=== PATIENT | female | born 1945 | race Caucasian/White ===

== ENCOUNTER → 2018-11-21 | Outpatient (CLI) | payer MEDICARE ==
[~2018-11-21] MED LIST: ASPI1TAB19 OR; CARV6.2551 OR; DIGO0.1262 OR; DULO60CA OR; FURO20TA3 OR; GABA400C11 OR; GLYB2.5T8 OR; LISI-646 OR; METF-370 OR; PIOG30TA8 OR; PLAVIX PO; POTA-167 OR; SIMV-13 OR
== END | disposition home or self-care (01) ==
LOC: Rad HDHVI 08:00
PROVIDERS: ATTEND Internal Medicine Cardiovascular Disease
DX: I08.0 Rheumatic disorders of both mitral and aortic valves (principal)
CPT/HCPCS: 93306

== ENCOUNTER → 2018-12-26 | Outpatient (CLI) | payer MEDICARE ==
[~2018-12-26] VITALS: Ht 162.6 cm; Wt 103.9 kg
[~2018-12-26] MED LIST changes: +ADENOSINE 87 MG in GIVE UN-DILUTED 0 ML IV ONE; +ADENOSINE 90 MG/30 ML INJ IV ONE
[2018-12-26 12:13] LABS: Urine Blood Negative /uL (Negative); Urine Specific Gravity 1.034 (1.001-1.035)
[2018-12-26 12:25] LABS: Free T4 (Free Thyroxine) 1.32 ng/dL (0.89-1.76)
[2018-12-26 12:34] LABS: Basophils # (auto) 0.1 uL; Basophils % (auto) 0.6 % (0.0-2.0); Eosinophils # (auto) 0.2 uL; Eosinophils % (auto) 2.1 % (0.0-7.0); Hemoglobin 12.6 g/dL (12.2-16.2); Lymphocytes # (auto) 1.3 uL; Lymphocytes % (auto) 13.6 % (10.0-50.0); Mean Corpuscular Hgb Conc. 32.4 g/dL (32.0-36.0); Mean Corpuscular Volume 89.5 fL (80.0-100.0); Monocytes # (auto) 0.7 uL; Monocytes % (auto) 7.8 % (0.0-12.0); Neutrophils # (auto) 7.1 uL; Neutrophils % (auto) 75.9 % (37.0-80.0); Nucleated Red Blood Cells % 0.1 %; Platelet Count (auto) 290 10^3/uL (140-450); Red Blood Cells 4.36 10^6/uL (4.0-5.20); Red Cell Distribution Width 14.5 % (11.8-14.3); White Blood Cell 9.4 10^3/uL (4.4-10.8)
[2018-12-26 12:36] LABS: Albumin 3.3 g/dL (3.4-5.0); BUN/Creatinine Ratio 40.3; Bilirubin, Total 0.6 mg/dL (0.2-1.0); Total Protein 7.1 g/dL (6.4-8.2)
== END | disposition home or self-care (01) ==
LOC: Rad HDHVI 07:56
PROVIDERS: ATTEND Internal Medicine Cardiovascular Disease
DX: I11.0 Hypertensive heart disease with heart failure (principal); I50.23 Acute on chronic systolic (congestive) heart failure; E03.9 Hypothyroidism, unspecified; E11.9 Type 2 diabetes mellitus without complications; E55.9 Vitamin D deficiency, unspecified; D51.9 Vitamin B12 deficiency anemia, unspecified; N39.0 Urinary tract infection, site not specified
CPT/HCPCS: 36415; 78452; 80053; 80061; 81003; 82306; 82607; 83036; 84439; 84443; 85025; 87086; 93005; 96374; 96375; A9500; J0153

== ENCOUNTER 2019-01-08 22:31 | Inpatient (IN) | payer MEDICARE ==
[~2019-01-08] VITALS: Ht 162.6 cm; Wt 103.9 kg
[~2019-01-08 22:31] MED LIST changes: -ADENOSINE 87 MG in GIVE UN-DILUTED 0 ML IV ONE; -ADENOSINE 90 MG/30 ML INJ IV ONE
[2019-01-09] LABS: Basophils # (auto) 0 uL; Basophils % (auto) 0.3 % (0.0-2.0); Eosinophils # (auto) 0.1 uL; Hemoglobin 12.7 g/dL (12.2-16.2); Lymphocytes # (auto) 0.7 uL; Lymphocytes % (auto) 6.2 % (10.0-50.0); Mean Corpuscular Hemoglobin 29.5 pg (28.0-32.0); Mean Corpuscular Hgb Conc. 33.3 g/dL (32.0-36.0); Mean Corpuscular Volume 88.4 fL (80.0-100.0); Monocytes # (auto) 0.9 uL; Monocytes % (auto) 7.4 % (0.0-12.0); Neutrophils # (auto) 10.1 uL; Neutrophils % (auto) 85.1 % (37.0-80.0); Platelet Count (auto) 288 10^3/uL (140-450); Red Blood Cells 4.29 10^6/uL (4.0-5.20); Red Cell Distribution Width 14.9 % (11.8-14.3); White Blood Cell 11.9 10^3/uL (4.4-10.8)
[2019-01-09 00:18] LABS: INR 1.74 (0.9-1.15); Partial Thromboplastin Time 38.8 sec (23.78-33.04); Potassium 4.4 mmol/L (3.5-5.1)
[2019-01-09 00:22] LABS: Albumin 3.1 g/dL (3.4-5.0); BUN/Creatinine Ratio 36.5; Calcium 8.5 mg/dL (8.5-10.1); Magnesium 1.9 mg/dL (1.6-2.6)
[2019-01-09 00:55] LABS: Bilirubin, Total 0.5 mg/dL (0.2-1.0); Total Protein 7.1 g/dL (6.4-8.2)
[2019-01-09] MEDS ORDERED: ASPirin 325 MG TAB PO ONE (02:00)
[2019-01-09] MEDS ORDERED: NITROGLYCERIN 0.2MG/HR TOPICAL PATCH TD ONE (02:00)
[2019-01-09] MEDS ORDERED: ONDANSETRON HCL 4 MG/2 ML VIAL IV PRN (05:45)
[2019-01-09] MEDS ORDERED: DEXTROSE (50%) 50ML SYRG IV PRN (05:45)
[2019-01-09] MEDS ORDERED: MORPHINE SULFATE 4 MG/ML SYR/VIAL IV PRN (05:45)
[2019-01-09] MEDS: GABAPENTIN 300 MG CAP PO SCH ×3 (06:00→22:12)
[2019-01-09] MEDS: LEVOTHYROXINE SODIUM 50 MCG TAB PO SCH (06:00)
[2019-01-09] MEDS ORDERED: IPRATROPIUM BROM 0.5 MG/2.5ML INH SOL NEB ONE (06:30)
[2019-01-09] MEDS ORDERED: ALBUTEROL SULF 2.5 MG/0.5ML(0.5%) NEB SOLN NEB ONE (06:30)
[2019-01-09] MEDS ORDERED: FUROSEMIDE 20 MG/2 ML VIAL IV ONE (06:30)
[2019-01-09] MEDS: ACCU-CHEK COMFORT CURVE STRIP VI SCH ×4 (06:58→22:12)
[2019-01-09] MEDS: InsuLIN REG 1unit/0.01ml Soln (100units/ml) SC SCH ×3 (06:58→17:00)
[2019-01-09 07:52] LABS: Urine Bacteria FEW /hpf (None Seen); Urine Blood Negative /uL (Negative); Urine Mucus FEW (None Seen); Urine Specific Gravity 1.029 (1.001-1.035); Urine WBC 2 /hpf (0 - 5)
[2019-01-09 07:59] LABS: Basophils # (auto) 0 uL; Basophils % (auto) 0.4 % (0.0-2.0); Eosinophils # (auto) 0.2 uL; Eosinophils % (auto) 1.9 % (0.0-7.0); Hematocrit 35.3 % (36.0-46.0); Hemoglobin 11.4 g/dL (12.2-16.2); Lymphocytes # (auto) 1.1 uL; Lymphocytes % (auto) 13.1 % (10.0-50.0); Mean Corpuscular Hemoglobin 28.7 pg (28.0-32.0); Mean Corpuscular Hgb Conc. 32.4 g/dL (32.0-36.0); Mean Corpuscular Volume 88.5 fL (80.0-100.0); Monocytes # (auto) 0.9 uL; Monocytes % (auto) 10.6 % (0.0-12.0); Neutrophils # (auto) 6.4 uL; Platelet Count (auto) 266 10^3/uL (140-450); Red Blood Cells 3.99 10^6/uL (4.0-5.20); Red Cell Distribution Width 14.8 % (11.8-14.3); White Blood Cell 8.7 10^3/uL (4.4-10.8)
[2019-01-09 08:14] LABS: BUN/Creatinine Ratio 41.4; Calcium 8.4 mg/dL (8.5-10.1); Potassium 3.6 mmol/L (3.5-5.1)
[2019-01-09] MEDS: cefTRIAXone 1GM/50ML D5W 50 ML IV SCH (08:40)
[2019-01-09] MEDS: PANTOPRAZOLE 40 MG TAB PO SCH (10:45)
[2019-01-09] MEDS: CARVEDILOL 3.125 MG TAB PO SCH ×2 (10:45→22:38)
[2019-01-09] MEDS: CLOPIDOGREL BISULFATE 75 MG TAB PO SCH (10:45)
[2019-01-09] MEDS: ASPirin-EC 81 mg tab PO SCH (10:45)
[2019-01-09] MEDS: IPRATROPIUM BROM 0.5 MG/2.5ML INH SOL NEB SCH ×2 (12:07→19:41)
[2019-01-09] MEDS: ALBUTEROL SULF 2.5 MG/0.5ML(0.5%) NEB SOLN NEB SCH ×2 (12:07→19:41)
[2019-01-09] MEDS ORDERED: LIDOCAINE 2%HCL (LOCAL ANESTH.) INJ 20ML MDV ONE (13:13)
[2019-01-09] MEDS ORDERED: IODIXANOL 320MG/ML 100ML BTL IV ONE (13:13)
[2019-01-09] MEDS ORDERED: fentaNYL CITRATE 100 MCG/2 ML VL ONE (13:14)
[2019-01-09] MEDS ORDERED: SODIUM CHL 0.9% 50 ML ONE (13:14)
[2019-01-09] MEDS ORDERED: ANGIOMAX 250 MG VIAL IV ONE (13:14)
[2019-01-09] MEDS ORDERED: MIDAZOLAM HCL 1MG/1ML-2 ML VIAL ONE (13:15)
[2019-01-09] MEDS ORDERED: IOHEXOL 350 MG/ML 100ML IJ ONE (14:31)
[2019-01-09] MEDS ORDERED: CLOPIDOGREL 300 MG TAB ONE (14:38)
[2019-01-09 16:17] VITALS: BP 93/63
[2019-01-09] MEDS: glyBURIDE 5 MG TAB PO SCH (17:34)
[2019-01-09 20:00] VITALS: BP 104/70
--- NOTE | 2019-01-09 20:00 | NUR ---
Note: Patient resting comfortably watching TV. Patient A/O x 4, denies pain at this time. Vitals WNL.
[2019-01-09 21:45] LABS: INR 2.08 (0.9-1.15); Prothrombin Time 21.4 sec (9.27-12.13)
[2019-01-09 22:00] VITALS: BP 119/74
[2019-01-09] MEDS ORDERED: InsuLIN REG 1unit/0.01ml Soln (100units/ml) SC SCH (22:00)
[2019-01-09] MEDS: FUROSEMIDE 40 MG/4 ML VIAL IV SCH (22:00)
--- NOTE | 2019-01-09 22:00 | NUR ---
Report received from Chen. CHRISTINE GUALLPA brought to bed following Cardiac catheterization, on environmental monitoring specialist and portable oxygen. Patient transferred to unit bed, connected to desk monitor #[id number] and oxygen. Catheterization site assessed for any bleeding, redness or swelling. Pedal pulses on affected leg assessed for positive tissue perfusion. Patient instructed on need to notify staff immediately if any pain, burning or wetness to site, and any lower back pain. All questions and concerns addressed, patient verbalized understanding of all education and instruction. patient awake and alert, oriented x 4. On oxygen at 3L NC, no S/S of distress/SOB. Patient is S/P [facility] with angioplasty to PAD. Right groin dressing C/D/I, no s/s of bleeding or bruising, soft to touch, bilateral pedal pulse even and regular with brisk capillary refill. Patient ambulates independency with steady gait. IV intact and patent. patient denies pain at this time. Bed low locked position with side rails up x 2 and call light within reach. Instructed on POC and to call for assist PRN, will continue to monitor for changes Q1hr and PRN.
--- NOTE | 2019-01-09 22:30 | NUR ---
[facility] [place] [facility] [address], [place], [address] PHONE NUMBER [phone]
[2019-01-10] MEDS: IPRATROPIUM BROM 0.5 MG/2.5ML INH SOL NEB SCH ×3 (00:34→12:30)
[2019-01-10] MEDS: ALBUTEROL SULF 2.5 MG/0.5ML(0.5%) NEB SOLN NEB SCH ×3 (00:34→12:30)
[2019-01-10] MEDS ORDERED: WARF5TAB71 PO (04:28)
[2019-01-10] MEDS ORDERED: AMLO5TAB13 PO (04:28)
[2019-01-10] MEDS ORDERED: GLIM4TAB42 PO (04:28)
[2019-01-10] MEDS ORDERED: LEVO50TA7 PO (04:34)
[2019-01-10 05:00] VITALS: BP 101/74
[2019-01-10] MEDS: ACCU-CHEK COMFORT CURVE STRIP VI SCH ×2 (06:25→13:01)
[2019-01-10] MEDS: GABAPENTIN 300 MG CAP PO SCH (06:25)
[2019-01-10] MEDS: LEVOTHYROXINE SODIUM 50 MCG TAB PO SCH (06:25)
[2019-01-10] MEDS: glyBURIDE 5 MG TAB PO SCH (06:34)
[2019-01-10] MEDS: InsuLIN REG 1unit/0.01ml Soln (100units/ml) SC SCH ×2 (06:35→13:01)
--- NOTE | 2019-01-10 07:00 | NUR ---
Closing Note patient resting in bed with oxygen on even and unlabored respirations. no s/s of distress. Endorsed care to day shift RN.
--- NOTE | 2019-01-10 07:30 | NUR ---
Opening Shift Note Assuming care of patient at this time. Patient is awake, alert, and oriented x4. Patient denies pain at this time. Patient is resting in bed with bed locked and lowered, side rails up x2. Instructed patient on the plan of care for today and to call for assistance as needed. Will continue to monitor. Call light within reach.
[2019-01-10 09:00] VITALS: BP 104/75
[2019-01-10] MEDS: cefTRIAXone 1GM/50ML D5W 50 ML IV SCH (09:35)
[2019-01-10] MEDS: FUROSEMIDE 40 MG/4 ML VIAL IV SCH (09:36)
[2019-01-10] MEDS: CLOPIDOGREL BISULFATE 75 MG TAB PO SCH (09:37)
[2019-01-10] MEDS: ASPirin-EC 81 mg tab PO SCH (09:37)
[2019-01-10] MEDS: CARVEDILOL 3.125 MG TAB PO SCH (09:40)
[2019-01-10] MEDS: PANTOPRAZOLE 40 MG TAB PO SCH (09:40)
[2019-01-10] MEDS ORDERED: FUROSEMIDE 40 MG/4 ML VIAL IV SCH (10:00)
[2019-01-10 13:00] VITALS: BP 107/63
[2019-01-10 17:00] VITALS: BP 145/76
[2019-01-10 17:42] VITALS: BP 145/76
[2019-01-10] MEDS ORDERED: DAPA1TAB4 PO (18:05)
[2019-01-10] MEDS ORDERED: CLOP75TA28 PO (18:05)
--- NOTE | 2019-01-10 19:31 | NUR ---
Discharge Discharge instructions given as ordered. Encourage to follow up with PMD as instructed. All questions and concerns addressed. Patient verbalized understanding. IV removed with catheter intact, and pressure dressing applied. Telemetry unit returned to ICU. Patient taken to vehicle via wheelchair with all personal belongings, accompanied by this RN and family member. No distress noted at time of departure.
[2019-01-11] MEDS ORDERED: ONDANSETRON HCL 4 MG/2 ML VIAL ONE (02:00)
[2019-01-11] MEDS ORDERED: MORPHINE SULF INJ 2 MG/ML SYRINGE 1ML ONE (02:00)
== END 2019-01-10 18:25 | disposition home or self-care (01) | DRG 250 ==
LOC: EDUNIT# 22:31 → EDBD 22:31 → ER 22:39 → TELE 01-09 06:02 → TELE-WESTW 01-09 21:59
PROVIDERS: ADMIT Nurse Practitioner Family; ATTEND Internal Medicine Cardiovascular Disease
PROC: 4A023N7 Measurement of Cardiac Sampling and Pressure, Left Heart, Percutaneous Approach (ICD-10-PCS; principal; 2019-01-09)
PROC: 02703ZZ Dilation of Coronary Artery, One Artery, Percutaneous Approach (ICD-10-PCS; 2019-01-09)
PROC: B2151ZZ Fluoroscopy of Left Heart using Low Osmolar Contrast (ICD-10-PCS; 2019-01-09)
PROC: B2111ZZ Fluoroscopy of Multiple Coronary Arteries using Low Osmolar Contrast (ICD-10-PCS; 2019-01-09)
DX: T82.858A Stenosis of other vascular prosthetic devices, implants and grafts, initial encounter (principal); I50.33 Acute on chronic diastolic (congestive) heart failure; I21.4 Non-ST elevation (NSTEMI) myocardial infarction; I25.110 Atherosclerotic heart disease of native coronary artery with unstable angina pectoris; I48.0 Paroxysmal atrial fibrillation; E78.5 Hyperlipidemia, unspecified; E66.9 Obesity, unspecified; Y83.8 Other surgical procedures as the cause of abnormal reaction of the patient, or of later complication, without mention of misadventure at the time of the procedure; R07.9 Chest pain, unspecified; I11.0 Hypertensive heart disease with heart failure; D72.829 Elevated white blood cell count, unspecified; J44.9 Chronic obstructive pulmonary disease, unspecified; E11.9 Type 2 diabetes mellitus without complications; Z88.1 Allergy status to other antibiotic agents; Z88.5 Allergy status to narcotic agent; Z88.8 Allergy status to other drugs, medicaments and biological substances; Y92.89 Other specified places as the place of occurrence of the external cause; Z79.899 Other long term (current) drug therapy; Z79.82 Long term (current) use of aspirin; Z86.718 Personal history of other venous thrombosis and embolism; Z98.61 Coronary angioplasty status; Z79.84 Long term (current) use of oral hypoglycemic drugs
CPT/HCPCS: 36415; 80048; 80053; 81001; 82962; 83605; 83735; 83880; 84443; 84484; 85025; 85379; 85610; 85730; 86141; 86850; 86900; 86901; 87040; 87804; 92920; 93005; 93458; 94640; 94761; 96374; 96375; 99152; A6257; C1887; G0378; J0696; J1815; J2250; J2405; Q9967